=== PATIENT | female | born 1960 | race Caucasian/White ===

== ENCOUNTER 2020-06-13 11:19 | Observation (INO) | payer OTHER ==
[2020-06-01 12:43] LABS: BASOPHILS % (AUTO) 0.4 % (0-1); EOSINOPHILS # (AUTO) 0.1 X10'3 (0-0.9); EOSINOPHILS % (AUTO) 1.7 % (0-6); LYMPHOCYTES # (AUTO) 2.4 X10'3 (1.1-4.8); LYMPHOCYTES % (AUTO) 35.3 % (21-51); MEAN CORPUSCULAR HGB CONC 32.8 g/dL (33.0-36.5); MEAN CORPUSCULAR VOLUME 88.4 FL (78-98); MEAN PLATELET VOLUME 8.2 FL (7.4-10.4); MONOCYTES # (AUTO) 0.5 X10'3 (0-0.9); MONOCYTES % (AUTO) 7.1 % (2-12); NEUTROPHILS # (AUTO) 3.8 X10'3 (1.8-7.7); NEUTROPHILS % (AUTO) 55.5 % (42-75); PRE OP HEMATOCRIT 40.6 % (35.0-45.0); PRE OP HEMOGLOBIN 13.3 g/dL (12.0-16.0); PRE OP PLATELET COUNT 250 X10'3 (140-440); RED CELL DISTRIBUTION WIDTH 14.5 % (11.5-14.5)
[2020-06-01 12:44] LABS: ALBUMIN 3.9 G/DL (3.4-5.0); ALBUMIN/GLOBULIN RATIO 1.1 (1.1-1.5); ALKALINE PHOSPHATASE 69 IU/L (46-116); BLOOD UREA NITROGEN 7 MG/DL (7-18); BUN/CREATININE RATIO 10.6 (6.6-38.0); CALCIUM 9.1 MG/DL (8.5-10.1); CHLORIDE 106 MMOL/L (99-107); CREATININE 0.66 MG/DL (0.40-0.90); PRE OP ALT 23 U/L (30-65); PRE OP ANION GAP 9 (8-16); PRE OP AST 19 U/L (10-37); PRE OP BILIRUB, TOTAL 0.3 MG/DL (0.0-1.0); PRE OP GLUCOSE 99 MG/DL (70-104); PRE OP POTASSIUM 3.8 MMOL/L (3.4-5.1); PRE OP SODIUM 144 MMOL/L (135-145); TOTAL CARBON DIOXIDE 29.4 MMOL/L (24-32); TOTAL PROTEIN 7.3 G/DL (6.4-8.2); eGFR > 90 ML/MIN
[~2020-06-13] VITALS: Ht 172.7 cm; Wt 87.5 kg
[2020-06-13] VITALS (17 sets, daily range): BP systolic 116–153; BP diastolic 70–89
[~2020-06-13 11:19] MED LIST: BUPIVAcaine/PF 2.5 mg/ml (0.25%) 30ml vial ONE; CITA40TA17 PO; LIDOcaine 1% 30ml preserv. free vial ONE; OMEP-50 PO; ceFAZolin 2gm in dextrose, iso 50 ML IV ONE; diatrozoate meglu/diatrozoate sod (37% iodine) 120ML oral solution ONE; famotidine 20mg tablet PO ONE; ringers solution, lacted 1,000 ML IV SCH; scopolamine 1.5mg patch.TD72 TD ONE
[2020-06-13] MEDS ORDERED: sevoflurane 250ml liquid IH ONE (12:50)
[2020-06-13] MEDS ORDERED: rocuronium 10mg/ml inj IV ONE ×2 (12:50→15:48)
[2020-06-13] MEDS ORDERED: midazolam 2 mg/2 ml injection ONE (12:55)
[2020-06-13] MEDS ORDERED: fentaNYL/PF 50MCG/1 ML 2ML syringe ONE ×2 (12:55→13:45)
[2020-06-13] MEDS ORDERED: ondansetron/PF 4mg/2ml inj ONE (15:48)
[2020-06-13] MEDS ORDERED: propofol inj 20 ML IV ONE (15:48)
[2020-06-13] MEDS ORDERED: glycopyrrolate 0.2mg/ml inj ONE (15:48)
[2020-06-13] MEDS ORDERED: ePHEDrine 50MG/ML INJ. ONE (15:48)
[2020-06-13] MEDS ORDERED: neostigmine methylsulfate 1 MG/ML 10ml vial ONE (15:48)
[2020-06-13] MEDS ORDERED: LIDOcaine 2% (20mg/ml) 5ml vial ONE (15:48)
[2020-06-13] MEDS ORDERED: dexamethasone sod phosphate 4mg/ml inj. ONE (15:48)
[2020-06-13] MEDS ORDERED: acetaminophen 1,000mg/100ml IV 100 ML IV ONE (15:57)
--- NOTE | 2020-06-13 16:05 | NUR ---
Received from OR via SURGICAL BED , accompanied by Anesthesiologist MEENA and report given by Anesthesiolgist. PATIENT WITH 20G PIV IN LEFT UE RUNNING LR AT 100. DENIES PAIN 5 ABDOMINAL DRESSINGS SITES THAT ARE DERMABONDED SHUT AND HAVE NO DRAINAGE PRESENT. 10L MASK ON WITH 98% SATURATIONS. VSS. SCDS DONNED. AGOSTO CATHETER PRESENT WITH CLEAR YELLOW URINE. ROBERT GIBSON FOR COMFORT. Addendum: 06/13/20 at 1637 by Brad Cohen RN, RN Amended: Links added.
[2020-06-13] MEDS ORDERED: ringers solution, lacted 1,000 ML IV SCH (16:15)
[2020-06-13] MEDS ORDERED: ondansetron/PF 4mg/2ml inj IV PRN ×2 (16:15→16:35)
[2020-06-13] MEDS ORDERED: morphine 2 MG/ML inj. syringe IV PRN (16:15)
[2020-06-13] MEDS ORDERED: proCHLORperazine 10 MG/2 ml inj IV PRN (16:15)
[2020-06-13] MEDS ORDERED: meperidine/PF 25mg/ml syringe IV PRN ×3 (16:15)
[2020-06-13] MEDS ORDERED: morphine 4 MG/ML inj SYRINge IV PRN (16:15)
[2020-06-13] MEDS ORDERED: Potassium Cl inj 20 MEQ in ringers solution, lacted 1,000 ML IV SCH (16:35)
[2020-06-13] MEDS ORDERED: HYDROcodone/acetaminophen 5mg/325mg tablet PO PRN ×2 (16:40)
--- NOTE | 2020-06-13 17:51 | NUR ---
Patient in room [facility]. I have received report from severino VASQUEZ and had the opportunity to ask questions and assume patient care.
--- NOTE | 2020-06-13 17:52 | NUR ---
patient appears stable. VSS Orientated to room and call light. 5 lapsites CDI.patient needs to be on cont pulse ox. o2/3L. IDC in place draining clear yellow urine. will continue to monitor.
[2020-06-13] MEDS: Potassium Cl inj 20 MEQ in ringers solution, lacted 1,000 ML IV SCH (17:55)
[2020-06-13] MEDS ORDERED: HYDROmorphone inj. 0.5 MG/0.5 ML DISP.SYRIN IV ONE (18:05)
[2020-06-13] MEDS ORDERED: CADD PCA waste documentation MC PRN (18:05)
[2020-06-13] MEDS ORDERED: naloxone 0.4 mg/ml inj IV PRN (18:05)
--- NOTE | 2020-06-13 18:09 | NUR ---
patient having difficulty swallowing Roosevelt, diluted in water and managed to swallow. DR rosario made aware. dilaudid cadd ordered for overnight and one time dilaudid 0.5mg if needed x1.
--- NOTE | 2020-06-13 18:52 | NUR ---
Problems reprioritized. Patient report given, questions answered & plan of care reviewed with aldair VASQUEZ.
--- NOTE | 2020-06-13 18:56 | NUR ---
Patient in room [facility]. I have received report from Edith VASQUEZ and had the opportunity to ask questions and assume patient care.
[2020-06-13] MEDS: HYDROmorphone/NS 1 mg/ml CADD 50 ML IV SCH ×3 (20:28→23:00)
[2020-06-14 00:13] VITALS: BP 131/69
[2020-06-14] MEDS: HYDROmorphone/NS 1 mg/ml CADD 50 ML IV SCH ×7 (01:00→13:00)
[2020-06-14] MEDS: Potassium Cl inj 20 MEQ in ringers solution, lacted 1,000 ML IV SCH ×3 (01:11→12:19)
[2020-06-14 04:30] VITALS: BP 134/69
[2020-06-14 06:00] VITALS: BP 135/70
[2020-06-14 06:16] LABS: BASOPHILS % (AUTO) 0 % (0-1); EOSINOPHILS % (AUTO) 0 % (0-6); HEMATOCRIT 38.9 % (35.0-45.0); HEMOGLOBIN 12.9 g/dl (12.0-16.0); LYMPHOCYTES # (AUTO) 1.3 X10'3 (1.1-4.8); LYMPHOCYTES % (AUTO) 11.8 % (21-51); MEAN CORPUSCULAR HEMOGLOBIN 29.2 PG (27.0-31.0); MEAN CORPUSCULAR HGB CONC 33.2 g/dL (33.0-36.5); MEAN CORPUSCULAR VOLUME 87.8 FL (78-98); MEAN PLATELET VOLUME 8.1 FL (7.4-10.4); MONOCYTES # (AUTO) 0.8 X10'3 (0-0.9); MONOCYTES % (AUTO) 7.4 % (2-12); NEUTROPHILS # (AUTO) 8.6 X10'3 (1.8-7.7); NEUTROPHILS % (AUTO) 80.8 % (42-75); PLATELET COUNT 248 X10'3 (140-440); RED BLOOD COUNT 4.43 X10'6 (4.20-5.60); RED CELL DISTRIBUTION WIDTH 14.4 % (11.5-14.5); WHITE BLOOD COUNT 10.6 X10'3 (4.5-11.0)
[2020-06-14 06:22] LABS: ALBUMIN 3.2 G/DL (3.4-5.0); ANION GAP 6 (8-16); BLOOD UREA NITROGEN 6 MG/DL (7-18); BUN/CREATININE RATIO 7.9 (6.6-38.0); CHLORIDE 107 MMOL/L (99-107); CREATININE 0.76 MG/DL (0.40-0.90); GLUCOSE 114 MG/DL (70-104); POTASSIUM 4.9 MMOL/L (3.5-5.1); SODIUM 143 MMOL/L (135-145); TOTAL CARBON DIOXIDE 29.8 MMOL/L (24-32); eGFR 78 ML/MIN
--- NOTE | 2020-06-14 06:27 | NUR ---
Problems reprioritized. Patient report given, questions answered & plan of care reviewed with Edith VASQUEZ and Blake VASQUEZ.
--- NOTE | 2020-06-14 06:50 | NUR ---
Patient in room [facility]. I have received report from aldair VASQUEZ and had the opportunity to ask questions and assume patient care.
[2020-06-14] MEDS ORDERED: citalopram 20mg tablet PO SCH (08:00)
[2020-06-14 11:00] VITALS: BP 144/72
--- NOTE | 2020-06-14 12:29 | NUR ---
Nutrition consult for post mandeep diet education. Pt met at bedside and given written education handout for following a full liquid diet post op and GERD education. Pt verbalized understanding and has already stocked her kitchen with the appropriate foods. Gave pt RD contact information if any additional questions. Addendum: 06/14/20 at [address] Amended: Links added.
[2020-06-14] MEDS ORDERED: HYDROcodone/acetaminophen 10/325mg tab PO ONE (14:05)
--- NOTE | 2020-06-14 14:34 | NUR ---
patient up walking in hallway. went for oesophagram. diet increased to full lqd following this. spoke with DR Paolo hercules DC. patient given norco 10mg able to swallow when broken up in 06/26. will continue to monitor. tolerated small amount of full lqd diet.
[2020-06-14] MEDS ORDERED: HYDR-4353 PO (14:54)
--- NOTE | 2020-06-14 17:21 | NUR ---
patient seen by DR marlene bolivar for discharge. All DC instructions given to patient. Manito prescription given to patient. patient DC home via private car in stable condition.[id number].
== END 2020-06-14 16:22 | disposition home or self-care (01) ==
LOC: PRE-OP 11:19 → SUR 3N 16:35
PROVIDERS: ADMIT Surgery; ATTEND Surgery
DX: K44.9 Diaphragmatic hernia without obstruction or gangrene (principal); Z20.828 Contact with and (suspected) exposure to other viral communicable diseases; R10.10 Upper abdominal pain, unspecified
CPT/HCPCS: 36415; 43281; 71045; 74220; 80048; 80053; 82948; 85025; 87081; 87635; 93005; 96365; C1758; G0378; J0131; J1100; J1170; J2001; J2250; J2405; J2704; J2710; J3010; J3480; J3490; J7120; Q9963; S2900; A4215; A4618